=== PATIENT | female | born 1965 | race Native Hawaiian/Other Pacific Islander ===

== ENCOUNTER 2019-12-30 11:58 | Outpatient (CLI) | payer OTHER | END 2019-12-30 20:07 | disposition home or self-care (01) | LOC: CT 11:58 | DX: R07.82 Intercostal pain (principal); J93.11 Primary spontaneous pneumothorax; S22.32XA Fracture of one rib, left side, initial encounter for closed fracture | CPT/HCPCS: 36415; 82565; 84520; Q9963 ==

== ENCOUNTER 2023-04-12 09:09 | Outpatient (CLI) | payer OTHER | END 2023-04-12 19:09 | disposition home or self-care (01) | LOC: CT 09:09 | PROVIDERS: ATTEND Family Medicine | DX: M62.81 Muscle weakness (generalized) (principal) | CPT/HCPCS: 36415; 82565; 84520; Q9963 ==